=== PATIENT | female | born 1965 | race Caucasian/White ===

== ENCOUNTER → 2018-03-30 13:39 | Outpatient (CLI) | payer OTHER, SELFPAY ==
[2018-03-30 15:02] LABS: TSH 3.85 uIU/mL (0.358-3.74)
== END ==
PROVIDERS: PCP Physician Assistant Medical; Visit Provider Physician Assistant Medical
DX: R94.6 Abnormal results of thyroid function studies (principal)
CPT/HCPCS: 36415; 84443

== ENCOUNTER 2019-01-02 17:45 | Outpatient (REF) | payer OTHER, SELFPAY ==
[2019-01-02 22:16] LABS: Hemoglobin A1C 5.5 % (4.5-6.2)
[2019-01-02 22:23] LABS: T4 8.2 ug/dL (4.5-12.5); TSH 3.09 uIU/mL (0.358-3.74)
[2019-01-03 17:36] LABS: T3, Total 120 ng/dl (97-169)
== END 2019-01-02 18:05 ==
LOC: NCHCN 17:45
PROVIDERS: PCP Physician Assistant Medical; Visit Provider Nurse Practitioner Family
DX: R94.6 Abnormal results of thyroid function studies (principal); R05 Cough
CPT/HCPCS: 83036; 84436; 84443; 84480

== ENCOUNTER 2019-06-20 01:06 | Outpatient (CLI) | payer OTHER, SELFPAY ==
--- NOTE | 2019-06-20 08:49 | DI.MAMMO_ITS ---
EXAM: MG MAMMO SCREENING CLINICAL HISTORY: HEALTH SCREENING, Z13.9 TECHNIQUE: Mammograms were interpreted according to the usual protocol including computer analysis w [employer] CAD system, tomosynthesis and C-view imaging. COMPARISON: [id number] FINDINGS: The breasts are composed of heterogeneously dense tissue, which may obscure small masses, breast dens ity category C. There are no dominant masses or microcalcifications. There is no significant interva l change in comparison with the previous examinations. IMPRESSION: Category 1, negative mammogram. Yearly screening mammography is recommended. BI-RADS Cat 1 - Negative Breast Density - Category C - Heterogeneously dense
== END 2019-06-20 01:26 ==
PROVIDERS: PCP Physician Assistant Medical; Visit Provider Physician Assistant Medical
DX: Z12.31 Encounter for screening mammogram for malignant neoplasm of breast (principal)
CPT/HCPCS: 77063; 77067

== ENCOUNTER 2020-04-29 15:42 | Outpatient (REF) | payer OTHER, SELFPAY ==
[2020-04-29 20:54] LABS: Abs Immature Grans 0.02 10^3/uL (0.0-0.06); Absolute Basophil Count 0.05 10^3/uL (0.0-0.2); Absolute Eosinophil Count 0.17 10^3/uL (0.0-0.7); Absolute Lymphocyte Count 1.55 10^3/uL (1.2-3.4); Absolute Monocyte Count 0.39 10^3/uL (0.1-0.8); Absolute Neutrophil Count 4.07 10^3/uL (1.2-6.7); Basophils % 0.8; Eosinophils % 2.7; HCT 41.4 % (36.0-46.0); HGB 13.5 g/dL (11.2-15.7); Immature Grans % 0.3; Lymphocytes % 24.8; MCH 31.1 pg (27.0-33.0); MCHC 32.6 % (32.0-36.0); MCV 95.4 fL (80-95); Monocytes % 6.2; Neutrophils % 65.2; Nucleated RBC 0 %; Platelet Count 341 10^3/uL (130-400); RBC 4.34 10^6/uL (3.93-5.22); RDW 13.2 % (11.7-14.6); RDW-SD 46.5 fL; WBC 6.25 10^3/uL (4.4-10.8)
[2020-04-29 21:32] LABS: Anion Gap 10.1 mmol/L (3-11); BUN 13 mg/dL (7-18); CO2 24.9 mmol/L (21.0-32.0); CREATININE 0.81 mg/dL (0.55-1.02); Calcium 9.2 mg/dL (8.5-10.1); Chloride 105 mmol/L (98-107); Glucose 93 mg/dL (74-106); Potassium 4.1 mmol/L (3.5-5.1); Sodium 140 mmol/L (136-145); TSH (W/Ref FT4) 2.14 uIU/mL (0.36-3.74)
[2020-04-30 00:13] LABS: Hemoglobin A1C 5.3 % (<5.7)
== END 2020-04-29 16:02 ==
LOC: NCHCN 15:42
PROVIDERS: PCP Physician Assistant Medical; Visit Provider Physician Assistant Medical
DX: G43.909 Migraine, unspecified, not intractable, without status migrainosus (principal)
CPT/HCPCS: 80048; 83036; 83735; 84443; 85025

== ENCOUNTER 2020-05-14 00:41 | Outpatient (CLI) | payer OTHER, SELFPAY ==
--- NOTE | 2020-05-14 13:35 | DI.CT_ITS ---
EXAM: CT HEAD WO CLINICAL HISTORY: MIGRAINE HEADACHE,G43.909. TECHNIQUE: Imaging Protocol: Axial computed tomography images with coronal and sagittal reformatted images were created and reviewed COMPARISON: No exams were available for comparison FINDINGS: Ventricles and Extra axial spaces: Normal in size and morphology for the patient's age. Hemorrhage: None. Cerebral parenchyma: Normal. Midline shift: None. Brainstem/Cerebellum: Normal. Calvarium: Normal. Visualized Paranasal sinuses/Mastoids: Clear. Soft Tissues: Unremarkable. Orbits: Unremarkable. IMPRESSION: Negative head CT RADIATION DOSE DELIVERED: 758.86mGy.cm Total DLP DATA REPOSITORY: All CT scans at this facility are submitted to the National Radiology Data Registry (NRDR) Dose Index Registry (DIR) with the [employer] [place] [employer] ([employer]). RADIATION OPTIMIZATION: All CT scans at this facility use at least one of these dose optimization te chniques: automated exposure control; mA and/or kV adjustment per patient size (includes targeted exa ms where dose is matched to clinical indication); or iterative reconstruction.
== END 2020-05-14 01:01 ==
PROVIDERS: PCP Physician Assistant Medical; Visit Provider Physician Assistant Medical
DX: G43.909 Migraine, unspecified, not intractable, without status migrainosus (principal)
CPT/HCPCS: 70450

== ENCOUNTER 2020-08-12 01:15 | Outpatient (CLI) | payer OTHER, SELFPAY ==
--- NOTE | 2020-08-12 07:00 | DI.US_ITS ---
EXAM: US PELVIS TRANSVAGINAL CLINICAL HISTORY: PELVIC PAIN,R10.2 TECHNIQUE: Ultrasound of the pelvis was performed both transabdominal and transvaginal. COMPARISON: No exams were available for comparison FINDINGS: UTERUS: Measures 12 cm length x 6 cm AP x 7 cm wide. There is a 1.8 x 1.1 x 1.5 centimeter submucosal left-sided fibroid noted.No other fibroids identifie d. Endometrial thickness measures 11 mm. There is no fluid in the endometrial canal. CERVIX: There are no obvious nabothian cysts. RIGHT OVARY: Measures 2.7 x 1.4 x 1.5 cm No significant cysts nor masses evident in the right ovary. LEFT OVARY: Measures 2.7 x 1.1 x 1.4 cm No significant cysts nor masses evident in the left ovary. CUL-DE-SAC: No free fluid evident. IMPRESSION: 1. There is a solitary 18 x 11 x 15 millimeter left-sided submucosal fibroid in the uterus noted. 2. Endometrial thickness is 11 millimeters 3. No abnormal adnexal masses. DATA REPOSITORY:
== END 2020-08-12 01:35 ==
PROVIDERS: PCP Physician Assistant Medical; Visit Provider Obstetrics & Gynecology
DX: D25.0 Submucous leiomyoma of uterus (principal); R10.2 Pelvic and perineal pain
CPT/HCPCS: 76830; 76856

== ENCOUNTER 2020-11-04 11:26 | Outpatient (REF) | payer OTHER, SELFPAY ==
--- NOTE | 2020-11-04 09:35 | PAPFT_PTH ---
PATIENT: Ron Gibson LOC: [facility] U#:[id number] AGE/SX: 55/F ROOM: RE11/04/[address]: Christina Abdalla DO : 1965 BED: DIS: 11/04/2020 SPEC #: [id number] RECD: 11/04/20 12:56 STATUS: CHAPARRITA REQ #: [id number] BENJI: 11/04/20 09:[address]: Christina Abdalla DEPT: [facility] Cytology RECD BY: Shy Wilson ENTERED: 11/04/20 12:56 SP TYPE: PAPFT OTHR DR: Brennan Campa Tissues: 1 - CX/ENDOCX FOR PAP SMEARS Procedures: PAP THIN PREP/UVM Screening HPV DNA PROBE Comments: [id number]
== END 2020-11-04 11:27 | disposition home or self-care (01) ==
LOC: LBN 11:26
PROVIDERS: PCP Physician Assistant Medical; Visit Provider Obstetrics & Gynecology
DX: Z12.4 Encounter for screening for malignant neoplasm of cervix (principal); Z11.51 Encounter for screening for human papillomavirus (HPV)
CPT/HCPCS: 88142; 87624

== ENCOUNTER 2020-11-13 02:13 | Outpatient (CLI) | payer OTHER, SELFPAY ==
--- NOTE | 2020-11-13 06:15 | DI.MAMMO_ITS ---
EXAM: MAMMO SCREENING CLINICAL HISTORY: screening,Z12.39. TECHNIQUE: Bilateral full field digital CC and MLO mammographic images were obtained with 3D tomosyn thesis and utilizing computer aided detection (CAD). COMPARISON: Prior mammograms dating back to 2011, the most recent being June 2019. FINDINGS: The fibroglandular tissue is moderately dense, this decreasing the sensitivity of the mammogram for f inding hidden underlying lesions. In the left breast there is a noncalcified 5 by 4 millimeter nodule located slightly medial of center and 4 cm in from the nipple, best seen on 3D cc imaging. On the left MLO view there is a laterally l ocated nodular density measuring 11 by 9 millimeters, approximately 4 cm in from the nipple, lateral of center. Posteriorly in the opposite-right breast there is a benign-appearing group of microcalcifications now evident. There is no significant architectural distortion nor skin thickening-retraction. IMPRESSION: Dense bilateral fibroglandular tissue. Left breast nodules. Spot compression views and ultrasound rec ommended. BI-RADS Category 0 - Assessment Incomplete: Need additional imaging evaluation Breast Density - Category C - Heterogeneously dense Breast density Category C or D implies that the patient has dense breast tissue. Dense breast tissue can make it harder to find cancer on a mammogram. Dense breast tissue is also associated with an incr eased risk of breast cancer. This information about the result of the mammogram report was provided to the patient to raise their awareness. Use this report when you speak with the patient about their risks for breast cancer, which includes their family history. At that time, you may recommend additional screening tests (Ultrasoun d or MRI) as these tests may add significant information. A negative radiographic report should not delay biopsy if a dominant or clinically suspicious mass is present. Up to ten percent of cancers are not identified on mammography. A negative report may reinforce clinical impression. Adenosis and dense breasts may obscure an underlying neoplasm. False positive reports average 6 to 10%. Patient will receive a letter notifying them of these results.
== END 2020-11-13 02:33 ==
PROVIDERS: PCP Physician Assistant Medical; Visit Provider Obstetrics & Gynecology
DX: Z12.31 Encounter for screening mammogram for malignant neoplasm of breast (principal); R92.8 Other abnormal and inconclusive findings on diagnostic imaging of breast
CPT/HCPCS: 77063; 77067

== ENCOUNTER 2020-11-18 02:01 | Outpatient (CLI) | payer OTHER, SELFPAY ==
--- NOTE | 2020-11-18 | DI.US_ITS ---
EXAM: US BREAST LT COMPLETE CLINICAL HISTORY: LT BREAST NODULE AND NODULAR DENSITY, F/U MAMMO. TECHNIQUE: Complete ultrasound of the left breast was performed incluing all 4 quadrants, the retroa reolar region, and the ipsilateral axilla. COMPARISON: Prior mammograms were reviewed. Today's diagnostic mammogram was reviewed FINDINGS: There are multiple benign simple microcysts in the upper outer quadrant. At the 5 o'clock position there is a 1.2 x 0.8 cm cyst which corresponds to the nodule on the mammogr am. This contains a small mural nodule measuring 3 x 1 millimeter. We will re-scanned this in 6 mon ths. At the peripheral 2 o'clock position there is a benign-appearing lymph node. IMPRESSION: 1. There is a 12 x 8 millimeter cyst at 5 o'clock position which corresponds to the finding on the ma mmogram. This appears to contain a small mural nodule. Therefore recommend repeat ultrasound in 6 m onths. Given the amount of findings seen on ultrasound the left breast (which are hidden subjacent t o her dense fibroglandular tissue on 3D mammography), I recommend that the ultrasound in 6 months fro m now be a bilateral complete breast ultrasound. Findings are recommendations were discussed by myself with the patient and her today. BI-RADS Category 3 - 6 month - Probably Benign Finding: Recommend follow-up ULTRASOUND in 6 months Breast Density - Category C - Heterogeneously dense Breast density Category C or D implies that the patient has dense breast tissue. Dense breast tissue can make it harder to find cancer on a mammogram. Dense breast tissue is also associated with an incr eased risk of breast cancer. This information about the result of the mammogram report was provided to the patient to raise their awareness. Use this report when you speak with the patient about their risks for breast cancer, which includes their family history. At that time, you may recommend additional screening tests (Ultrasoun d or MRI) as these tests may add significant information. A negative radiographic report should not delay biopsy if a dominant or clinically suspicious mass is present. Up to ten percent of cancers are not identified on mammography. A negative report may reinforce clinical impression. Adenosis and dense breasts may obscure an underlying neoplasm. False positive reports average 6 to 10%. Patient will receive a letter notifying them of these results.
--- NOTE | 2020-11-18 14:02 | DI.MAMMO_ITS ---
EXAM: MG MAMMO SCREEN CALL BACK UNI CLINICAL HISTORY: F/U MAMMO, LT BREAST NODULE,NODULAR DENSITY,RT BREAST MICROCALCIFICATIONS. TECHNIQUE: Unilateral spot mammographic images were obtained with 3D tomosynthesis and utilizing [employer] puter aided detection (CAD). . Ipsilateral left breast Ultrasound was also performed. COMPARISON: Prior mammograms were reviewed. This additional imaging was performed due to findings described on the recent screening mammogram of 11/13/2020. FINDINGS: Additional mammographic views performed today revealed that this nodule persists. We therefore proceeded with ultrasound. Complete ultrasound examination left breast was performed Ultrasound performed today reveals multiple cysts. The largest at the 5 o'clock position and corresp onds to this nodule on the mammogram. This cyst contains a small mural nodule. Therefore recommend repeat ultrasound in 6 month. See separate ultrasound exam dictated today. IMPRESSION: 5 o'clock position 12 x 8 millimeters cyst which contains small mural nodule. Appropriate follow-up is repeat breast ultrasound in 6 months. Given the numerous findings are recom mend that the repeat ultrasound examination in 6 months be a bilateral breast ultrasound exam. BI-RADS Category 3 - 6 month - Probably Benign Finding: Recommend follow-up ultrasound in 6 months. Breast Density - Category C - Heterogeneously dense Breast density Category C or D implies that the patient has dense breast tissue. Dense breast tissue can make it harder to find cancer on a mammogram. Dense breast tissue is also associated with an incr eased risk of breast cancer. This information about the result of the mammogram report was provided to the patient to raise their awareness. Use this report when you speak with the patient about their risks for breast cancer, which includes their family history. At that time, you may recommend additional screening tests (Ultrasoun d or MRI) as these tests may add significant information. A negative radiographic report should not delay biopsy if a dominant or clinically suspicious mass is present. Up to ten percent of cancers are not identified on mammography. A negative report may reinforce clinical impression. Adenosis and dense breasts may obscure an underlying neoplasm. False positive reports average 6 to 10%. Patient will receive a letter notifying them of these results.
== END 2020-11-18 02:21 ==
PROVIDERS: PCP Physician Assistant Medical; Visit Provider Obstetrics & Gynecology
DX: Z12.31 Encounter for screening mammogram for malignant neoplasm of breast (principal); R92.8 Other abnormal and inconclusive findings on diagnostic imaging of breast; N60.02 Solitary cyst of left breast
CPT/HCPCS: 76642; 77063; 77067

== ENCOUNTER 2021-05-20 08:07 | Outpatient (CLI) | payer OTHER, SELFPAY ==
[2021-05-20 09:46] LABS: Hemoglobin A1C 5.5 % (<5.7)
[2021-05-20 10:12] LABS: ALT 26 U/L (14-59); AST 17 U/L (15-37); Albumin 3.7 g/dL (3.4-5.0); Alkaline Phosphatase 107 U/L (46-116); Anion Gap 9.7 mmol/L (3-11); BUN 14 mg/dL (7-18); Bilirubin, Total 0.5 mg/dL (0.2-1.0); CO2 26.3 mmol/L (21.0-32.0); CREATININE 0.8 mg/dL (0.55-1.02); Calculated LDL 99 mg/dL (<100); Chloride 104 mmol/L (98-107); Cholesterol 165 mg/dL (<200); Glucose 97 mg/dL (74-106); HDL Cholesterol 47 mg/dL (40-60); Potassium 4.3 mmol/L (3.5-5.1); Sodium 140 mmol/L (136-145); Total Protein 7.6 g/dL (6.4-8.2); Triglyceride 99 mg/dL (<150)
[2021-05-22 00:43] LABS: Vitamin D 25 Total 18.6 ng/mL (30-100)
== END 2021-05-20 08:08 | disposition home or self-care (01) ==
LOC: LBO 08:07
PROVIDERS: PCP Physician Assistant Medical; Visit Provider Physician Assistant Medical
DX: R53.83 Other fatigue (principal); Z00.00 Encounter for general adult medical examination without abnormal findings
CPT/HCPCS: 36415; 80053; 80061; 82306; 83036

== ENCOUNTER 2021-11-19 19:39 | Outpatient (REF) | payer OTHER, SELFPAY ==
[2021-11-19 19:26] LABS: Source Nasal/Nares
[2021-11-19 23:22] LABS: COVID-19 PCR Positive (Negative)
== END 2021-11-19 19:40 | disposition home or self-care (01) ==
LOC: LBN 19:39
PROVIDERS: PCP Physician Assistant Medical; Visit Provider Family Medicine
DX: Z20.822 Contact with and (suspected) exposure to COVID-19 (principal); Z01.818 Encounter for other preprocedural examination
CPT/HCPCS: 87635

== ENCOUNTER 2022-02-24 04:04 | Outpatient (CLI) | payer OTHER, SELFPAY ==
[2022-02-24 12:50] LABS: ALT 23 U/L (14-59); AST 14 U/L (15-37); Albumin 3.4 g/dL (3.4-5.0); Alkaline Phosphatase 93 U/L (46-116); Anion Gap 9.5 mmol/L (3-11); BUN 16 mg/dL (7-18); Bilirubin, Total 0.4 mg/dL (0.2-1.0); CO2 23.5 mmol/L (21.0-32.0); CREATININE 0.8 mg/dL (0.55-1.02); Calcium 8.5 mg/dL (8.5-10.1); Calculated LDL 73 mg/dL (<100); Chloride 105 mmol/L (98-107); Cholesterol 144 mg/dL (<200); Glucose 114 mg/dL (74-106); HDL Cholesterol 46 mg/dL (40-60); Potassium 3.9 mmol/L (3.5-5.1); Sodium 138 mmol/L (136-145); TSH (W/Ref FT4) 2.85 uIU/mL (0.36-3.74); Total Protein 7.3 g/dL (6.4-8.2); Triglyceride 125 mg/dL (<150)
== END 2022-02-24 04:05 | disposition home or self-care (01) ==
LOC: LBO 04:05
PROVIDERS: PCP Physician Assistant Medical; Visit Provider Obstetrics & Gynecology
DX: N93.9 Abnormal uterine and vaginal bleeding, unspecified (principal); Z13.220 Encounter for screening for lipoid disorders
CPT/HCPCS: 36415; 80053; 80061; 83001; 84443

== ENCOUNTER → 2022-03-16 01:23 | Outpatient (CLI) | payer OTHER, SELFPAY ==
--- NOTE | 2022-03-16 08:03 | DI.MAMMO_ITS ---
Exam(s) MAMMO SCREENING EXAM: MAMMO SCREENING CLINICAL HISTORY: screening. TECHNIQUE: Bilateral full field digital CC and MLO mammographic images were obtained with 3D tomosyn thesis and utilizing computer aided detection (CAD). COMPARISON: Prior mammograms were reviewed, the most recent being October 2020. Prior breast ultrasou nd examinations were reviewed, most recent being May 2021.. FINDINGS: Fibroglandular tissue pattern is again noted be moderately dense. Previously present nodule inferiorly in the left breast has decreased in size, further evidence that it is a cyst, shown on prior ultrasound examination. There are no new spiculated masses nor malignant appearing microcalcification groups in left breast.. In the opposite-right breast there is a nodules seen inferiorly on the MLO view, measuring approximat marco 6 x 4 millimeters and located 6 cm in from the nipple. There is no significant architectural distortion nor skin thickening-retraction. IMPRESSION: 1. No radiographic evidence of malignancy in left breast. 2. 6 x 4 millimeter asymmetric density towards the inferior aspect of the right breast as best seen o n MLO 3D imaging. Recommend spot compression MLO view and right breast ultrasound. BI-RADS Category 0 - Assessment Incomplete: Need additional imaging evaluation Breast Density - Category C - Heterogeneously dense Breast density Category C or D implies that the patient has dense breast tissue. Dense breast tissue can make it harder to find cancer on a mammogram. Dense breast tissue is also associated with an incr eased risk of breast cancer. This information about the result of the mammogram report was provided to the patient to raise their awareness. Use this report when you speak with the patient about their risks for breast cancer, which includes their family history. At that time, you may recommend additional screening tests (Ultrasoun d or MRI) as these tests may add significant information. A negative radiographic report should not delay biopsy if a dominant or clinically suspicious mass is present. Up to ten percent of cancers are not identified on mammography. A negative report may reinforce clinical impression. Adenosis and dense breasts may obscure an underlying neoplasm. False positive reports average 6 to 10%. Patient will receive a letter notifying them of these results.
== END ==
PROVIDERS: PCP Physician Assistant Medical; Visit Provider Obstetrics & Gynecology
DX: Z12.31 Encounter for screening mammogram for malignant neoplasm of breast (principal); R92.8 Other abnormal and inconclusive findings on diagnostic imaging of breast
CPT/HCPCS: 77063; 77067

== ENCOUNTER → 2022-03-24 01:43 | Outpatient (CLI) | payer OTHER, SELFPAY ==
--- NOTE | 2022-03-24 | DI.MAMMO_ITS ---
Exam(s) MG MAMMO SCREEN CALL BACK UNI US BREAST RT LIMITED EXAM: US BREAST RT LIMITED CLINICAL HISTORY: ASYMMETRIC DENSITY RT BREAST TECHNIQUE: Ultrasound performed using standard protocol. COMPARISON: US US BREAST LT COMPLETE from 05/21/2021 FINDINGS: Additional mammographic views of the right breast and right breast ultrasound are interpreted in conj unction. These examinations were obtained to evaluate a small area of nodularity seen in the 6 o'tayla ck position of the right breast on MLO view of recent mammogram. Additional mammographic views fail to show a discrete mass. Breast ultrasound shows some mildly dila murtaza intramammary ducts and perhaps some micro cysts in the 9 o'clock position in the breast but no ma ss or cyst corresponding to the region of interest mammographically. IMPRESSION: No specific evidence of malignancy at this time. Follow-up unilateral right breast mammogram recomm ended in 6 months. BI-RADS Cat 3 - 6 month - Probably Benign Finding: Recommend follow-up imaging in 6 months Breast Density - Category C - Heterogeneously dense DATA REPOSITORY:
== END ==
PROVIDERS: PCP Physician Assistant Medical; Visit Provider Obstetrics & Gynecology
DX: Z12.31 Encounter for screening mammogram for malignant neoplasm of breast (principal); R92.8 Other abnormal and inconclusive findings on diagnostic imaging of breast
CPT/HCPCS: 76642; 77063; 77067

== ENCOUNTER → 2022-05-19 02:51 | Outpatient (CLI) | payer OTHER, SELFPAY ==
--- NOTE | 2022-05-19 06:15 | DI.MRI_ITS ---
Exam(s) MR LOWER JOINT LT WO EXAM: MR LOWER JOINT LT WO CLINICAL HISTORY: ACUTE Persistent pain,? internal derangement,M25.562. TECHNIQUE: Multiplanar multisequence MRI was performed. COMPARISON: CR XR KNEE LT 3V AP,LAT,DAMION from 03/03/2022 FINDINGS: BONES: There is no fracture or contusion pattern. JOINTS: Articular cartilage is unremarkable. No effusion is present. TENDONS: Extensor mechanism: Unremarkable. Medial retinaculum: Unremarkable. Lateral retinaculum: Unremarkable. Popliteus: Unremarkable. MUSCLES: Unremarkable. MENISCI: The medial meniscus is unremarkable. The lateral meniscus is unremarkable. SOFT TISSUES: There is mild edema in the soft tissues anterior to the knee. It lies anterior to the d istal aspect of the patellar tendon LIGAMENTS: Anterior Cruciate: Unremarkable. Posterior Cruciate: Unremarkable. Medial Collateral:Unremarkable. Lateral Collateral: Unremarkable. OTHER: IMPRESSION: 1. No acute abnormalities identified. 2. No evidence of a meniscal or ligament tear. 3. Patellar bursitis. DATA REPOSITORY:
== END ==
PROVIDERS: PCP Physician Assistant Medical; Visit Provider Nurse Practitioner Family
DX: M25.562 Pain in left knee (principal); M70.42 Prepatellar bursitis, left knee
CPT/HCPCS: 73721

== ENCOUNTER 2022-09-24 01:08 | Outpatient (CLI) | payer OTHER, SELFPAY ==
--- NOTE | 2022-09-24 | DI.MAMMO_ITS ---
Exam(s) MAMMO DIAGNOSTIC UNI EXAM: MAMMO DIAGNOSTIC UNI CLINICAL HISTORY: F/U ABNL MAMMO, R92.8, 6 MO F/U,NODULARITY,MICROCYSTS. TECHNIQUE: Craniocaudal and mediolateral oblique Full Field Digital Mammography views of the right b reast with Computer Aided Diagnosis followed by Tomosynthesis. COMPARISON: Comparison is made with prior examinations. FINDINGS: Mammography/Tomosynthesis: Masses/Architectural Distortion: Stable right breast nodules are present. No suspicious nodules or a reas of architectural distortion are present. Microcalcifictions: No suspicious pleomorphic-type are seen. Skin Thickening/Nipple Retraction: None. IMPRESSION: 1. No evidence of malignancy is noted. 2. Unless there is more urgent need, follow-up screening mammography is recommended, as per [place] [employer] guidelines. 3. The findings were discussed with the patient on the date of the examination. BI-RADS Category 1 - Negative Breast Density - Category B - Scattered areas of fibroglandular density Breast density Category C or D implies that the patient has dense breast tissue. Dense breast tissue can make it harder to find cancer on a mammogram. Dense breast tissue is also associated with an incr eased risk of breast cancer. This information about the result of the mammogram report was provided to the patient to raise their awareness. Use this report when you speak with the patient about their risks for breast cancer, which includes their family history. At that time, you may recommend additional screening tests (Ultrasoun d or MRI) as these tests may add significant information. A negative radiographic report should not delay biopsy if a dominant or clinically suspicious mass is present. Up to ten percent of cancers are not identified on mammography. A negative report may reinforce clinical impression. Adenosis and dense breasts may obscure an underlying neoplasm. False positive reports average 6 to 10%. Patient will receive a letter notifying them of these results.
== END 2022-09-24 01:28 ==
LOC: DI 01:08
PROVIDERS: PCP Physician Assistant Medical; Visit Provider Obstetrics & Gynecology
DX: R92.8 Other abnormal and inconclusive findings on diagnostic imaging of breast (principal); N60.81 Other benign mammary dysplasias of right breast
CPT/HCPCS: 77061; 77065; G0279

== ENCOUNTER 2022-10-30 07:41 | Day surgery (SDC) | payer OTHER, SELFPAY ==
--- NOTE | 2022-10-29 19:43 | PDOC.DSDIS_ITS ---
Date of service: 10/30/22 Time of Service: 10:46 Discharge Plan Disposition Patient Disposition: Home Condition: Good Discharge Details Reason For Visit: Screening colonoscopy Attending Provider: Grant Yun Primary Care Provider: Brennan Campa Home Meds and New Rx's Prescriptions: Continued omeprazole 20 mg capsule,delayed release(DR/EC) 20 mg PO DAILY PRN biotin 2,500 mcg capsule 2,500 mcg PO DAILY ascorbic acid (vitamin C) 500 mg capsule 500 mg PO DAILY cetirizine [Zyrtec] 10 MG tablet 10 mg PO DAILY PRN Multi-Vitamin HP/Minerals Capsule 1 cap PO DAILY levalbuterol tartrate [Xopenex HFA] 1 PUFF HFA aerosol inhaler 2 puff Inhalation Q4H PRN PRNQty: 1 0RF cholecalciferol (vitamin D3) 1,000 UNIT tablet 1,000 units PO DAILY Discharge Instructions Additional Instructions: Marla, we were able to complete your colonoscopy today without much difficulty. The quality of your preparation was excellent. I did not see any signs of polyps or colon cancers. With a single second-degree relative having a history of colon cancer, you should be screened every 10 years. If you have a first- degree relative, or 2 second-degree relatives, then that interval should be shortened to 5 years. 1. If tolerated, consume a soft, low fiber diet for 1-2 days. 2. Do not drive, drink alcohol, operate machinery, make critical decisions, or do activities that require coordination or balance for 24 hours. 3. Because air was put into your colon during the procedure, expelling air from your rectum (passing gas or farting) is normal. 4. You may not have a bowel movement for 1-3 days because of the colonoscopy prep. This is normal. 5. Go directly to the emergency room if you notice any of the following: Develop chills (warm to touch), or if you have a thermometer and your temperature is above 101 Difficulty breathing or difficultly swallowing Persistent vomiting Severe abdominal pain, other than gas cramps Severe chest pain Black, tarry stools Any bleeding ? exceeding one tablespoon 6. Call your physician if the site where your intravenous was started becomes red, swollen, painful, and warm to touch. 7. Your physician has reviewed your pre-procedure medications. Please continue to take those medications as previously ordered. You will be given specific information/education regarding any changes to your medications before leaving. Activity:: Activity as Tolerated Diet:: As Tolerated Discharge Orders Discharge Orders: Discharge Order (Routine); Ordered 10/29/22 Ordered By: Grant Yun DS: Diagnosis Discharge Diagnosis (1) Screening for colon cancer: Status: Acute Asessment and Plan: Negative screening colonoscopy. With a single second degree relative who has colon cancer, typical recommendation would be screening colonoscopies every 10 years. If it is the case that another second-degree relative developed colon cancer, then I would shorten that interval to every 5 years.
--- NOTE | 2022-10-29 19:48 | COLE_ITS ---
Date of service: 10/30/22 Time of Service: 10:50 Colonoscopy Report Date of procedure: 10/30/22 Pre-op diagnosis general: Screening colonoscopy Post-op diagnosis procedure note: other (Negative screening colonoscopy) Procedure: Colonoscopy Surgeon: Grant Yun Anesthesia Type: General:No Airway Estimated blood loss (mL): 0 Pathology: none sent Complications: None Disposition: same day Indications: Ron is 57 years old. She underwent colonoscopy in 2012 and was noted to have hyperplastic polyp. She is following up for her next screening colonoscopy Prep: Miralax/Dulcolax Procedure Start Time: 10:13 Procedure End Time: 10:39 Retraction Time: 15 Findings: Negative screening colonoscopy Procedure Description: After the induction of monitored anesthetic care, and with the patient in left lateral decubitus position, I began by performing an external anorectal exam.? Perineum and skin were normal, as was the anal verge.? There were some fibrosed external skin tags consistent with old external hemorrhoids.? Next, I performed a digital rectal exam.? I did not appreciate any abnormal findings.? Next, I advanced a colonoscope into the rectal vault.? I performed retroflexion.? This was normal.? Using insufflation, I then advanced the colonoscope beyond the rectal folds and into the sigmoid colon before advancing towards the cecum.? The quality of the prep was adequate.? The scope was noted to be in the cecum by rosalina ntification of the ileocecal valve and appendiceal orifice.? I then began withdrawing the colonoscope using repeated irrigation as necessary for full evaluation of the colonic mucosa. ?Once the scope was withdrawn to the level of the rectum, great care was taken to examine portions of the rectal folds.? Finally, the scope was withdrawn and the patient was brought to the same-day surgery recovery unit as the anesthetic wore off. I did not see any evidence of tumors or polyps. The findings and instructions were shared with the patient prior to discharge.
[2022-10-30 07:55] VITALS: BP 138/81; PULSE 79; RESP 18; TEMP 36.4; O2SAT 99
--- NOTE | 2022-10-30 08:31 | ANES.PREOP_ITS ---
General Info Date of Service Date Performed: 10/30/22 Height: 5 ft 7 in Weight: 108 kg Body Mass Index (BMI): 37.3 Surgical Procedure: Operation Date: 10/30/22 09:05 Proposed Procedure Side Surgeon gee Yun MD Meds Allergies and Home Medications Allergies Allergy/AdvReac Type Severity Reaction Status Date / Time prednisone Allergy Severe Verified 10/30/22 08:10 adhesive Allergy Mild RED SKIN, Verified 10/30/22 08:10 RASH latex Allergy Mild BREATHING Verified 10/30/22 08:10 PROBLEMS doxycycline AdvReac Intermediate VOMITING Verified 10/30/22 08:10 rabbits AdvReac Mild resp.issues Uncoded 10/30/22 08:10 Home Medication Medication Instructions Recorded levalbuterol tartrate 45 2 puff inhalation Q4H PRN PRN #1 10/31/12 mcg/actuation aerosol inhaler inh (Xopenex HFA) cholecalciferol (vitamin D3) 25 1,000 units PO DAILY 02/21/13 mcg (1,000 unit) tablet cetirizine 10 mg tablet (Zyrtec) 10 mg PO DAILY PRN 11/30/16 omeprazole 20 mg capsule,delayed 20 mg PO DAILY PRN 08/12/20 release multivitamin,tx-minerals 1 cap PO DAILY 08/21/22 (Multi-Vitamin HP/Minerals capsule) ascorbic acid (vitamin C) 500 mg 500 mg PO DAILY 10/12/22 capsule biotin 2,500 mcg capsule 2,500 mcg PO DAILY 10/12/22 Current Visit Medications: Current Medications Generic Name Dose Route Start Last Admin Trade Name Freq PRN Reason Stop Dose Admin Hyoscyamine Sulfate 0.125 mg 10/29/22 19:50 Hyoscyamine 0.125 Mg Sl/Oral/Chew SL DIRECTED PRN Ringer's Solution 1,000 mls @ 80 mls/hr 10/30/22 06:00 IV 10/30/22 23:59 INFUSION NERY IV Miscellaneous Supplies 1 each 10/30/22 06:00 Iv Access IV 10/30/22 23:59 DIRECTED PENDING SALE TO [facility] Ondansetron HCl 4 mg 10/29/22 19:50 Ondansetron 4 Mg/2 Ml Vial IVP Q4H PRN PRN Nausea / Vomiting Sodium Chloride 0 ml 10/30/22 06:00 Normal Saline Flush 10 Ml Syr IV 10/30/22 23:59 PRN PRN Sodium Chloride 0 ml 10/30/22 06:00 Normal Saline 10 Ml Vial IJ 10/30/22 23:59 DIRECTED PRN Sterile Water 0 ml 10/30/22 06:00 Water,Injection,Sterile 10 Ml Vial IJ 10/30/22 23:59 DIRECTED PRN PFSH Active Problems Active Problems: Problem Status Onset Code Screening for colon cancer Z12.11 Pelvic pain R10.2 Abnormal uterine bleeding N93.9 Fibroid, uterine D25.9 Abnormal mammogram R92.8 Screening cholesterol level Z13.220 Knee pain, acute M25.569 Abnormal mammogram of right breast R92.8 Contusion of left knee, sequela S80.02XS Iliotibial band syndrome of left side M76.32 Fatigue R53.83 Migraine headache G43.909 Dysphagia R13.10 S/P laparoscopic cholecystectomy Z90.49 Medical History Medical History Cholelithiasis without obstruction Contact dermatitis Elevated TSH Leg edema Obesity Other seborrheic keratosis Polyp of colon Rhinitis Tachycardia Pt. states work related Tobacco Smoking/Tobacco Use Status: Never Alcohol Alcohol Intake: current Alcohol intake frequency: holidays/special occasions only Substance Use Substance use: Never Substance use type: does not use Vital Signs and Lab Results Vital Signs Most Recent Vital Signs in EMR: Most Recent Vital Signs Temp Pulse Resp BP Pulse Ox 36.4 C L 79 18 138/81 99 10/30/22 07:55 10/30/22 07:55 10/30/22 07:55 10/30/22 07:55 10/30/22 07:55 Lab Results Blood Type / Crossmatch: No Data to Display Complete Blood Count: No Data to Display Complete Metabolic Panel: No Data to Display Liver Function Panel: No Data to Display Coagulation Panel: No Data to Display Cardiac Panel: No Data to Display Arterial Blood Gas: No Data to Display Venous Blood Gas: No Data to Display Pancreas Panel: No Data to Display Thyroid Panel: No Data to Display Infectious Disease: No Data to Display Blood Cultures: No Data to Display Toxicology Panel: No Data to Display Anesthesia Assessment and Plan Anesthesia History Personal History: PONV Family History: No Family History of Anesthesia Complications Exercise Tolerance Exercise Tolerance: Metabolic Equivalents>4 Pertinent Negatives Pertinent Negatives: No Symptoms of GERD (Occ. omeprazole), No Major Cardiovascular Symptoms or Complaints, No Major Pulmonary Symptoms or Complaints and No History of CVA/TIA Cardiac & Pulmonary Exam Cardiac Exam: Normal S1/S2 Heart Sounds Pulmonary Exam: Clear Bilateral Breath Sounds Implantable Cardiac Device Does patient have a Pacemaker or an ICD?: No Airway Exam Known Difficult Airway: No Mallampati Class: 3 Mouth Opening: Normal (> 3cm) Thyromental Distance: Greater than 3 cm Neck Range of Motion: Full ROM Neck Circumference: Thick Teeth Condition: Normal Dentition ASA Classification ASA Score: ASA 2 Emergency Case?: No NPO Status NPO Status: NPO Clears >2 hours, Solids >8 hours Anesthesia Plan Resuscitation Status: Full Code Anesthesia Technique: General Anesthesia Airway Planned: Natural Airway Monitors Used: Standard Monitors
[2022-10-30] MEDS: Lactated Ringers 1,000 ML 80 ML IV (08:45)
[2022-10-30 10:04] VITALS: BMI 37.3
[2022-10-30 10:46] VITALS: BP 110/64; PULSE 77; RESP 18; TEMP 36.3; O2SAT 97
--- NOTE | 2022-10-30 11:19 | W.ANESPOSTOP ---
Postoperative Evaluation Date, Time and Location Date Performed: 10/30/22 Time Performed: 10:55 Patient Location: Day Surgery Unit Vital Signs Most Recent Imported Vital Signs: Most Recent Vital Signs Temp Pulse Resp BP Pulse Ox 36.3 C L 77 18 110/64 97 10/30/22 10:46 10/30/22 10:46 10/30/22 10:46 10/30/22 10:46 10/30/22 10:46 Pain Score Most Recent Pain Score: Most Recent Pain Score Pain Level 0 10/30/22 10:46 Assessment Mental Status: Awake (Alert & Oriented to Patient Baseline) Airway and Respiratory Function: Patent airway with normal (patient baseline) respiratory exam Cardiovascular Function: Hemodynamically Stable Hydration Status: Adequately Hydrated Nausea & Vomiting: No Nausea or Vomiting Pain: Pt. Denies Any Pain Peripheral Nerve Block: Patient did not receive a nerve block
[2022-10-30 11:28] VITALS: BP 141/86; PULSE 74; RESP 16; TEMP 36.5; O2SAT 96
== END 2022-10-30 11:45 | disposition home or self-care (01) ==
PROVIDERS: PCP Physician Assistant Medical; Visit Provider Surgery
PROC: 0DJD8ZZ Inspection of Lower Intestinal Tract, Via Natural or Artificial Opening Endoscopic (ICD-10-PCS; CPT 45378; principal; 2022-10-30 09:00)
DX: Z12.11 Encounter for screening for malignant neoplasm of colon (principal); Z86.010 Personal history of colon polyps
CPT/HCPCS: 45378; J2405

== ENCOUNTER 2023-01-28 11:14 | Outpatient (CLI) | payer OTHER, SELFPAY ==
--- NOTE | 2023-01-28 08:22 | DI.RAD_ITS ---
Exam(s) XR CHEST 2V PA LATERAL EXAM: XR CHEST 2V PA LATERAL CLINICAL HISTORY: COUGH, R05.8 TECHNIQUE: 2D digital imaging was performed. COMPARISON: CR CHEST 2 VIEWS PA,LAT from 11/05/2012 FINDINGS: HEART: Normal size. Aorta: Not dilated. PULMONARY VASCULATURE: Normal. LUNGS: Clear. PLEURAL SPACE: No pleural effusion or pneumothorax. BONE:Unremarkable for age. IMPRESSION: No acute abnormality. DATA REPOSITORY: RADIATION DOSE DELIVERED:
== END 2023-01-28 11:34 ==
LOC: DI 11:17
PROVIDERS: PCP Physician Assistant Medical; Visit Provider Physician Assistant Medical
DX: R05.8 Other specified cough (principal)
CPT/HCPCS: 71046

== ENCOUNTER 2023-01-28 16:05 | Outpatient (CLI) | payer OTHER, SELFPAY ==
[2023-01-28 15:48] LABS: Abs Immature Grans 0.03 10^3/uL (0.0-0.06); Absolute Basophil Count 0.06 10^3/uL (0.0-0.2); Absolute Eosinophil Count 0.17 10^3/uL (0.0-0.7); Absolute Lymphocyte Count 2.34 10^3/uL (1.2-3.4); Absolute Monocyte Count 0.65 10^3/uL (0.1-0.8); Absolute Neutrophil Count 5.61 10^3/uL (1.2-6.7); Basophils % 0.7; Eosinophils % 1.9; HCT 40.9 % (36.0-46.0); HGB 13.6 g/dL (11.2-15.7); Immature Grans % 0.3; Lymphocytes % 26.4; MCH 30.9 pg (27.0-33.0); MCHC 33.3 % (32.0-36.0); MCV 93 fL (80-95); MPV 9.1 fL (8.0-11.0); Monocytes % 7.3; Neutrophils % 63.4; Platelet Count 326 10^3/uL (130-400); RDW 12.7 % (11.7-14.6); RDW-SD 43.5 fL; WBC 8.86 10^3/uL (4.4-10.8)
[2023-01-28 16:06] LABS: Hemoglobin A1C 5.9 % (<5.7)
[2023-01-28 19:45] LABS: ALT 25 U/L (14-59); AST 20 U/L (15-37); Albumin 3.7 g/dL (3.4-5.0); Alkaline Phosphatase 115 U/L (46-116); Anion Gap 10.8 mmol/L (3-11); BUN 18 mg/dL (7-18); Bilirubin, Total 0.4 mg/dL (0.2-1.0); CO2 26.2 mmol/L (21.0-32.0); CREATININE 0.9 mg/dL (0.55-1.02); Chloride 103 mmol/L (98-107); Glucose 90 mg/dL (74-106); Sodium 140 mmol/L (136-145); Total Protein 7.7 g/dL (6.4-8.2)
[2023-01-29 10:23] LABS: Lyme Ab w Rflx to Lyme Confirm Negative (Negative)
[2023-01-31 17:59] LABS: Anaplasma phagocytophilum Negative (Negative); B. miyamotoi PCR Negative (Negative); Babesia divergens/MO-1 Negative (Negative); Babesia duncani Negative (Negative); Babesia microti Negative (Negative); Ehrlichia chaffeensis Negative (Negative); Ehrlichia ewingii/canis Negative (Negative); Ehrlichia muris eauclairensis Negative (Negative)
== END 2023-01-28 16:06 | disposition home or self-care (01) ==
LOC: LBO 16:09
PROVIDERS: PCP Physician Assistant Medical; Visit Provider Physician Assistant Medical
DX: R53.83 Other fatigue (principal); R05.8 Other specified cough
CPT/HCPCS: 36415; 80053; 87798; 83036; 85025; 86618

== ENCOUNTER → 2023-05-24 01:46 | Outpatient (CLI) | payer OTHER, SELFPAY ==
--- NOTE | 2023-05-24 15:17 | DI.MAMMO_ITS ---
Exam(s) MAMMO SCREENING EXAM: MAMMO SCREENING CLINICAL HISTORY: screening. TECHNIQUE: Bilateral full field digital CC and MLO mammographic images were obtained with 3D tomosyn thesis and utilizing computer aided detection (CAD). COMPARISON: Prior mammograms were reviewed. Prior ultrasound reviewed. FINDINGS: No new findings in left breast. Posteriorly in the right breast at approximately 6 o'clock position there is again noted a 6 x 4 mm n odule located approximately 7 cm in from the nipple. This may represent a benign intramammary lymph node but does appear more evident than on prior mammograms.. There are no malignant-appearing microcalcification groups in this region or elsewhere in either [address]. There is no significant architectural distortion nor skin thickening-retraction. IMPRESSION: 1. No radiographic evidence of malignancy in left breast. 2. Right breast 6 x 4 mm nodule at approximately 6 o'clock position. Spot compression view and ultra sound recommended. BI-RADS Category 0 - Assessment Incomplete: Need additional imaging evaluation Breast Density - Category C - Heterogeneously dense Breast density Category C or D implies that the patient has dense breast tissue. Dense breast tissue can make it harder to find cancer on a mammogram. Dense breast tissue is also associated with an incr eased risk of breast cancer. This information about the result of the mammogram report was provided to the patient to raise their awareness. Use this report when you speak with the patient about their risks for breast cancer, which includes their family history. At that time, you may recommend additional screening tests (Ultrasoun d or MRI) as these tests may add significant information. A negative radiographic report should not delay biopsy if a dominant or clinically suspicious mass is present. Up to ten percent of cancers are not identified on mammography. A negative report may reinforce clinical impression. Adenosis and dense breasts may obscure an underlying neoplasm. False positive reports average 6 to 10%. Patient will receive a letter notifying them of these results.
== END ==
PROVIDERS: PCP Physician Assistant Medical; Visit Provider Obstetrics & Gynecology
DX: Z12.31 Encounter for screening mammogram for malignant neoplasm of breast (principal); N63.11 Unspecified lump in the right breast, upper outer quadrant
CPT/HCPCS: 77063; 77067

== ENCOUNTER → 2023-05-28 00:30 | Outpatient (CLI) | payer OTHER, SELFPAY ==
--- NOTE | 2023-05-28 | DI.US_ITS ---
Exam(s) MG MAMMO SCREEN CALL BACK UNI US BREAST RT COMPLETE EXAM: MG MAMMO SCREEN CALL BACK UNI CLINICAL HISTORY: F/U MAMMO,R92.8,RT BREAST NODULE. TECHNIQUE: Craniocaudal and mediolateral oblique spot compression digital Mammography views of the r ightbreast with Tomosynthesis and right breast ultrasound. COMPARISON: US US BREAST RT COMPLETE from 05/28/2023 FINDINGS: Mammography/Tomosynthesis: Masses/Architectural Distortion: None seen. A posterior, circumscribed central nodule is less apparen t on the spot compression views. No change in appearance from prior. Microcalcifictions: No suspicious pleomorphic-type are seen. Skin Thickening/Nipple Retraction: None. Right breast US: Echotexture: Normal appearance of the glandular tissue. Shadowing: No suspicious foci. Cyst: None. Solid lesions: None seen. Ductal dilation: None. IMPRESSION: 1. No evidence of malignancy is noted. 2. Unless there is more urgent need, follow-up screening mammography is recommended, as per [employer] guidelines. 3. The findings were discussed with the patient on the date of the examination. BI-RADS Category 2 - Benign Findings Breast Density - Category C - Heterogeneously dense A mammogram that demonstrates density of C or D indicates the patient's breast tissue is dense. Dense breast tissue is very common and is not abnormal, but dense breast tissue can make it harder to find cancer on a mammogram. Also, dense breast tissue may increase their breast cancer risk. This informa tion about the result of the mammogram report was provided to the patient to raise their awareness. U se this report when you speak with the patient about their risks for breast cancer, which includes th eir family history. At that time, you may recommend for more screening tests (Ultrasound or MRI) as t hey might be useful based on their risk. A negative radiographic report should not delay biopsy if a dominant or clinically suspicious mass is present. Up to ten percent of cancers are not identified on mammography. A negative report may reinforce clinical impression. Adenosis and dense breasts may obscure an underlying neoplasm. False positive reports average 6 to 10%. Patient will receive a letter notifying them of these results.
== END ==
PROVIDERS: PCP Physician Assistant Medical; Visit Provider Obstetrics & Gynecology
DX: R92.8 Other abnormal and inconclusive findings on diagnostic imaging of breast (principal); R92.331 Mammographic heterogeneous density, right breast
CPT/HCPCS: 76642; 77063; 77067

== ENCOUNTER → 2023-08-05 10:22 | Outpatient (CLI) | payer OTHER, SELFPAY ==
--- NOTE | 2023-08-05 11:03 | DI.RAD_ITS ---
Exam(s) XR CERVICAL SPINE COMP 4-5V EXAM: XR CERVICAL SPINE COMP 4-5V CLINICAL HISTORY: M54.2 Cervicalgia. TECHNIQUE: 2D digital imaging was performed. Six images were obtained. AP, odontoid, lateral and jessie ateral oblique images were obtained. COMPARISON: No exams were available for comparison FINDINGS: The odontoid is intact. The lateral masses are well aligned. There is normal alignment of the cervi tanya spine. The vertebral bodies, disc spaces and posterior elements are well maintained. No acute f racture or subluxation is present. No significant neural foraminal stenosis is present. The cervical thoracic junction is well maintained. The prevertebral soft tissues are unremarkable. Lung apices a re clear. IMPRESSION: Unremarkable radiographs of the cervical spine. DATA REPOSITORY: RADIATION DOSE DELIVERED:
== END ==
PROVIDERS: PCP Physician Assistant Medical; Visit Provider Physician Assistant Medical
DX: M54.2 Cervicalgia (principal)
CPT/HCPCS: 72050

== ENCOUNTER 2023-09-07 15:30 | Outpatient (REF) | payer OTHER, SELFPAY ==
[2023-09-07 20:01] LABS: Hemoglobin A1C 5.6 % (<5.7)
[2023-09-08 13:57] LABS: Calculated LDL 65 mg/dL (<100); Cholesterol 148 mg/dL (<200); HDL Cholesterol 48 mg/dL (40-60); Triglyceride 177 mg/dL (<150)
[2023-09-08 14:06] LABS: Vitamin D 25 Total 13.5 ng/mL (30-100)
== END 2023-09-07 15:31 | disposition home or self-care (01) ==
LOC: NCHCN 15:30
PROVIDERS: PCP Physician Assistant Medical; Visit Provider Physician Assistant Medical
DX: Z00.00 Encounter for general adult medical examination without abnormal findings (principal)
CPT/HCPCS: 80061; 82306; 83036

== ENCOUNTER → 2023-11-22 03:38 | Outpatient (CLI) | payer OTHER, SELFPAY ==
--- NOTE | 2023-11-22 | DI.MRI_ITS ---
Exam(s) MR CERVICAL SPINE WO EXAM: MR CERVICAL SPINE WO CLINICAL HISTORY: CHRONIC NECK PAIN, M54.2,FAILED PT TECHNIQUE: Multiplanar multisequence MRI of the cervical spine was performed without intravenous con trast. COMPARISON: CR XR CERVICAL SPINE COMP 4-5V from 08/05/2023 FINDINGS: BONES: Vertebral body heights are maintained. Intervertebral disc spaces are normal. Alignment is nor mal. Bone marrow signal intensity is within normal limits. CERVICAL CORD: Craniovertebral junction is unremarkable. The cervical cord is normal size and signal intensity. SOFT TISSUES: Unremarkable. C2-3: No disc herniation or bulge is identified. No significant central spinal canal or neural forami nal stenosis. C3-4: No disc herniation or bulge is identified. No significant central spinal canal or neural forami nal stenosis C4-5: There is a mild diffuse disc bulge at this level. No significant central spinal canal or neura l foraminal stenosis C5-6: No disc herniation or bulge is identified. No significant central spinal canal or neural forami nal stenosis C6-7: No disc herniation or bulge is identified. No significant central spinal canal or neural forami nal stenosis C7-T1: No disc herniation or bulge is identified. No significant central spinal canal or neural reagan inal stenosis IMPRESSION: 1. No significant central spinal canal or neural foraminal stenosis is seen in the cervical spine. 2. Normal size and signal is seen in the spinal cord. DATA REPOSITORY:
== END ==
PROVIDERS: PCP Physician Assistant Medical; Visit Provider Physician Assistant Medical
DX: M54.2 Cervicalgia (principal)
CPT/HCPCS: 72141

== ENCOUNTER 2024-06-12 01:30 | Outpatient (CLI) | payer OTHER, SELFPAY ==
--- NOTE | 2024-06-12 07:00 | DI.MAMMO_ITS ---
Exam(s) MAMMO SCREENING EXAM: MAMMO SCREENING CLINICAL HISTORY: screening,z12.39 TECHNIQUE: Mammograms were interpreted according to the usual protocol including computer analysis w [employer] CAD system, tomosynthesis and C-view imaging. COMPARISON: 2015 through 2022 FINDINGS: The breasts are composed of heterogeneously dense fibroglandular densities, Breast Density category C . No suspicious masses or suspicious microcalcifications are seen. No skin thickening or abnormal axillary lymph nodes are seen. There has been no significant change from prior exams. IMPRESSION: BI-RADS Category 1, Negative mammogram. Yearly screening mammography is recommended. Breast Density Category C, heterogeneously Dense. The mammogram demonstrates the patient's breast tissue is dense. Dense breast tissue is very common a nd is not abnormal but dense breast tissue can make it harder to find cancer on a mammogram. Also, de nse breast tissue may increase breast cancer risk. This information about the result of the mammogram report was provided to the patient to raise their awareness. Use this report when you speak with the patient about their risks for breast cancer, which includes their family history. At that time, you may recommend additional screening tests (Ultrasound or MRI) as they might be useful based on their r isk. A negative radiographic report should not delay biopsy if a dominant or clinically suspicious mass is present. Up to ten percent of cancers are not identified on mammography. A negative report may reinforce clinical impression. Adenosis and dense breasts may obscure an underlying neoplasm. False positive reports average 6 to 10%.
== END 2024-06-12 01:50 ==
LOC: DI 01:31
PROVIDERS: PCP Physician Assistant Medical; Visit Provider Obstetrics & Gynecology
DX: Z12.31 Encounter for screening mammogram for malignant neoplasm of breast (principal); R92.333 Mammographic heterogeneous density, bilateral breasts
CPT/HCPCS: 77063; 77067

== ENCOUNTER 2024-08-29 22:29 | Emergency (ER) | payer OTHER, SELFPAY ==
--- NOTE | 2024-08-29 22:43 | ED.GENADUL_ITS ---
Discharge Plan Disposition Patient Disposition: Home Condition: Good Discharge Details Clinical Impression: Right shoulder pain Primary Care Provider: Brennan Campa ED Provider: Sean Bergeron Meds and New Rx's Prescriptions: New methocarbamol 500 mg tablet 500 - 1,000 mg PO TID PRN (Reason: muscle pain) Qty: 15 0RF lidocaine 5 % adhesive patch,medicated 1 patch topical DAILY Qty: 15 0RF Rx Instructions: leave on most painful area for up to 12 hrs Continued omeprazole 20 mg capsule,delayed release(DR/EC) 20 mg PO DAILY PRN ascorbic acid (vitamin C) 500 mg capsule 500 mg PO DAILY cetirizine [Zyrtec] 10 MG tablet 10 mg PO DAILY PRN Multi-Vitamin HP/Minerals Capsule 1 cap PO DAILY levalbuterol tartrate [Xopenex HFA] 1 PUFF HFA aerosol inhaler 2 puff Inhalation Q4H PRN PRNQty: 1 0RF cholecalciferol (vitamin D3) 1,000 UNIT tablet 1,000 units PO DAILY Discharge Instructions Instructions: Shoulder Pain ED Additional Instructions: You were seen for worsening shoulder pain. X-rays are negative for fracture/dislocation. I suspect possible rotator cuff problem. Sling for comfort by do pendulum exercises at least 4 times a day. Ice or heat on and off to help with pain. Lidocaine patches on for 12 hours then off. Alternate acetaminophen with ibuprofen as discussed. Methocarbamol should help with pain from spasm. Follow up with PCP for recheck and PT referral. Stand Alone Forms: Work Release Referrals: Brennan Campa PA [Primary Care Provider] - [facility] General Mode of arrival: ambulatory . Date/Time Provider Initiated Documentation: 08/29/24 22:43 . Limitations to Documentation: no limitations . Information obtained by: patient and RN notes reviewed . HPI Narrative: Patient presents to ED with right shoulder pain. She has been battling pneumonia and on Wednesday she had rolled over propping herself up with RUE to cough. Had pain when it happened and saw a chiropractor yesterday. Pain worse now and has extremely limited motion of right shoulder. Has some tingling down in her forearm but no pain. Strength is good distal right arm. No shortness of breath and better from her pneumonia except for residual cough. Took ibuprofen this evening and came to ED due to pain. Related Data Home Medications ?Medication ?Instructions ?Recorded ?Confirmed levalbuterol tartrate 45 2 puff inhalation Q4H PRN PRN #1 10/31/12 08/29/24 mcg/actuation aerosol inhaler inh (Xopenex HFA) cholecalciferol (vitamin D3) 25 1,000 units PO DAILY 02/21/13 08/29/24 mcg (1,000 unit) tablet cetirizine 10 mg tablet (Zyrtec) 10 mg PO DAILY PRN 11/30/16 08/29/24 omeprazole 20 mg capsule,delayed 20 mg PO DAILY PRN 08/12/20 08/29/24 release multivitamin,tx-minerals 1 cap PO DAILY 08/21/22 08/29/24 (Multi-Vitamin HP/Minerals capsule) ascorbic acid (vitamin C) 500 mg 500 mg PO DAILY 10/12/22 08/29/24 capsule lidocaine 5 % topical patch 1 patch topical DAILY #15 ea 08/30/24 methocarbamol 500 mg tablet 500 - 1,000 mg (1 - 2 x 500 mg) PO 08/30/24 TID PRN muscle pain #15 tabs Previous Rx's ?Medication ?Instructions ?Recorded levalbuterol tartrate 45 2 puff inhalation Q4H PRN PRN #1 10/31/12 mcg/actuation aerosol inhaler inh (Xopenex HFA) lidocaine 5 % topical patch 1 patch topical DAILY #15 ea 08/30/24 methocarbamol 500 mg tablet 500 - 1,000 mg (1 - 2 x 500 mg) PO 08/30/24 TID PRN muscle pain #15 tabs Allergies Allergy/AdvReac Type Severity Reaction Status Date / Time prednisone Allergy Severe Unknown Verified 08/29/24 22:52 adhesive Allergy Mild RED SKIN, Verified 08/29/24 22:52 RASH latex Allergy Mild BREATHING Verified 08/29/24 22:52 PROBLEMS rabbits AdvReac Mild resp.issues Uncoded 08/29/24 22:52 Review of Systems Narrative: per HPI Exam Narrative Exam Narrative: Const: WDWN female in NAD. VS per triage. HEENT: NC/AT. Normal facial exam. Neck: Supple. Trachea midline. No midline tenderness. Lungs: Normal respiratory effort. Cor: RRR. Good radial pulses. Neuro: A+O x 3. Normal speech, mentation, gait. Cranial nerves II - XII grossly intact. No gross motor or sensory deficit. Ext: RUE with severely limited ROM at shoulder due to pain. Tender over the anterior/superior portion of shoulder. No deformity, warmth, redness and is NVI distal. Medical Decision Making Patient presenting to ED with right shoulder pain with seemingly innocuous injury when she propped herself up to cough. Given worsening pain and decreased ROM over time, I suspect muscle/rotator cuff problem. There is no warmth, redness, fever to suggest infected joint. Doubt bony injury or dislocation but will obtain x-ray. Will dose with Robaxin for possible related spasm. Has already taken 800 ibuprofen. 23:50 - Patient's x-ray per my read without evidence of fracture or dislocation. Will provide sling for comfort but have instructed on pendulum exercises at minimum. Will apply lidocaine patch. Have discussed alternating ibuprofen with acetaminophen every 4 hours. Will continue Robaxin. Ice/heat therapy. Follow up with PCP and consider referral to PT. If no improvement with conservative treatment, consider MRI for rotator cuff tear. Imaging Data Radiologic Study: Attestation: I personally reviewed and interpreted this imaging study as follows: Imaging: X-Ray My impression: see [facility] PFSH All Active Problems (Updated 08/29/24 @ 23:59 by Sean Bergeron MD) Right shoulder pain (Acute) Cholelithiasis without obstruction (Acute) Polyp of colon (Acute) Tachycardia (Acute) Pt. states work related Fibroid, uterine (Chronic) Abnormal mammogram (Acute) Additional images warranted on the right breast 05/2023. Iliotibial band syndrome of left side (Acute) Migraine headache (Chronic) Dysphagia (Acute) Medical History Obesity Surgical History History of cholecystectomy 1997 Family History Paternal Grandfather Heart disease Mother Diabetes Hypertension Paternal Grandmother Colon cancer Maternal Grandfather Cancer Lung Maternal Grandmother Hypothyroidism Social History Smoking/Tobacco Use Status: Never Smoking risk assessment performed?: Yes Alcohol Intake: current Alcohol Intake frequency: holidays/special occasions only Drug use: Never Substance use type: does not use Do you feel safe at home: Yes Do you feel safe in your relationship?: Yes Additional Social history: not able to assess independently
[2024-08-29 22:46] VITALS: BP 155/91; PULSE 93; RESP 18; TEMP 36.5; O2SAT 99
[2024-08-29] MEDS: Methocarbamol 500 MG TAB 1000 MG PO (23:09)
--- NOTE | 2024-08-29 23:25 | DI.RAD_ITS ---
Exam(s) XR SHOULDER RT COMPLETE 2+V EXAM: XR SHOULDER RT COMPLETE 2+V CLINICAL HISTORY: shoulder pain. TECHNIQUE: 2D digital imaging was performed of the right shoulder. Four images were obtained. AP, Grashey and Y views were obtained. COMPARISON: No priors for comparison. FINDINGS: BONES: No acute fracture is present. No bony destructive lesion is seen. JOINTS: No dislocation present. SOFT TISSUE: Tiny calcifications adjacent to the humeral head which may represent calcific tendinitis . IMPRESSION: No acute fracture or dislocation. DATA REPOSITORY: RADIATION DOSE DELIVERED:
[2024-08-30] MEDS: Lidocaine 5% Patch 1 PATCH TP
--- NOTE | 2024-08-30 00:15 | DI.VRAD_ITS ---
PROCEDURE INFORMATION: Exam: XR Right Shoulder Exam date and time: 08/29/2024 11:19 PM Age: 59 years old Clinical indication: Right shoulder pain TECHNIQUE: Imaging protocol: Radiologic exam of the right shoulder. Views: 2 or more views. COMPARISON: MR CERVICAL SPINE WO 11/22/2023 2:23 PM, chest x-ray from January 28, 2023 FINDINGS: Bones/joints: Normal. Soft tissues: Normal. IMPRESSION: No acute findings. Dictated and Authenticated by: Sam Becerril MD. Orderin Rubio Estrada MD
== END 2024-08-30 00:16 | disposition home or self-care (01) ==
PROVIDERS: Emergency Provider Emergency Medicine; PCP Physician Assistant Medical
DX: M25.511 Pain in right shoulder (principal)
CPT/HCPCS: 99283; 73030

== ENCOUNTER 2024-09-22 11:35 | Outpatient (CLI) | payer OTHER, SELFPAY ==
--- NOTE | 2024-09-22 11:10 | DI.RAD_ITS ---
Exam(s) XR CHEST 2V PA LATERAL EXAM: XR CHEST 2V PA LATERAL CLINICAL HISTORY: PNEUMONIA, ONGOING COUGH, ADVENTITIOUS BREATH SOUNDS LLL TECHNIQUE: 2D digital imaging was performed of the chest. Two images were obtained. PA and lateral views were obtained. COMPARISON: CR XR CHEST 2V PA LATERAL from 01/28/2023 FINDINGS: MEDIASTINUM: Normal. HEART: Normal. PULMONARY VASCULATURE: Normal. LUNGS: Clear. PLEURAL SPACE: No pleural effusion or pneumothorax. BONE:Within normal limits for the patient's age. OTHER FINDINGS:Normal. IMPRESSION: No acute pulmonary findings. DATA REPOSITORY: RADIATION DOSE DELIVERED:
== END 2024-09-22 11:55 ==
LOC: DI 11:38
PROVIDERS: PCP Physician Assistant Medical; Visit Provider Family Medicine
DX: J18.9 Pneumonia, unspecified organism (principal)
CPT/HCPCS: 71046

== ENCOUNTER 2025-03-05 18:50 | Outpatient (REF) | payer OTHER, SELFPAY ==
[2025-03-05 19:46] LABS: Hemoglobin A1C 5.7 % (<5.7)
[2025-03-05 20:07] LABS: Calculated LDL 75 mg/dL (<100); Cholesterol 145 mg/dL (<200); HDL Cholesterol 45 mg/dL (>or=50); TSH (W/Ref FT4) 2.25 uIU/mL (0.36-3.74); Triglyceride 127 mg/dL (<150); Vitamin D 25 Total 21 ng/mL (30-100)
== END 2025-03-05 18:51 | disposition home or self-care (01) ==
LOC: NCHCN 18:50
PROVIDERS: PCP Physician Assistant Medical; Visit Provider Physician Assistant Medical
DX: Z13.6 Encounter for screening for cardiovascular disorders (principal); Z13.1 Encounter for screening for diabetes mellitus; R53.83 Other fatigue
CPT/HCPCS: 80061; 82306; 83036; 84443

== ENCOUNTER → 2025-06-18 01:38 | Outpatient (CLI) | payer OTHER, SELFPAY ==
--- NOTE | 2025-06-18 11:45 | DI.MAMMO_ITS ---
Exam(s) MAMMO SCREENING EXAM: MAMMO SCREENING CLINICAL HISTORY: screening TECHNIQUE: Mammograms were interpreted according to the usual protocol including computer analysis with CAD system, tomosynthesis and C-view imaging. COMPARISON: 2015 through 2023 FINDINGS: The breasts are composed of heterogeneously dense fibroglandular densities, Breast Density category C. No suspicious masses or suspicious microcalcifications are seen. No skin thickening or abnormal axillary lymph nodes are seen. There has been no significant change from prior exams. IMPRESSION: BI-RADS Category 1, Negative mammogram. Yearly screening mammography is recommended. Breast Density: Category C - The breasts are heterogeneously dense, which may obscure small masses. Breast density Category C or D implies that the patient has dense breast tissue. Dense breast tissue can make it harder to find cancer on a mammogram. Dense breast tissue is also associated with an increased risk of breast cancer. This information about the result of the mammogram report was provided to the patient to raise their awareness. Use this report when you speak with the patient about their risks for breast cancer, which includes their family history. At that time, you may recommend additional screening tests (Ultrasound or MRI) as these tests may add significant information. A negative radiographic report should not delay biopsy if a dominant or clinically suspicious mass is present. Up to ten percent of cancers are not identified on mammography. A negative report may reinforce clinical impression. Adenosis and dense breasts may obscure an underlying neoplasm. False positive reports average 6 to 10%.
== END ==
LOC: DI 01:38
PROVIDERS: PCP Physician Assistant Medical; Visit Provider Obstetrics & Gynecology
DX: Z12.31 Encounter for screening mammogram for malignant neoplasm of breast (principal); R92.323 Mammographic fibroglandular density, bilateral breasts
CPT/HCPCS: 77063; 77067